=== PATIENT | male | born 1945 | race Caucasian/White ===

== ENCOUNTER → 2016-09-20 | Outpatient (CLI) | payer MEDICARE, OTHER ==
[~2016-09-20] MED LIST: ALEVE 220MG220 MG PO
[2016-09-20 08:20] LABS: CREATININE, serum 0.83 mg/dL (0.66-1.25); POTASSIUM 4.4 mmol/L (3.4-5.0)
[2016-09-20 08:23] LABS: HEMATOCRIT 37.6 % (42.0-52.0); MEAN CELL VOLUME 89 fl (80.0-100.0); MEAN CORPUSCULAR HEMOGLOBIN 28 pg (27.0-31.0); MEAN CORPUSCULAR HGB CONC 32 g/dl (33.0-37.0); MEAN PLATELET VOLUME 9.9 fl (7.4-10.4); PLATELET COUNT 433 K/mm3 (130-400); RED BLOOD COUNT 4.22 M/mm3 (4.20-5.60); REDCELL DISTRIBUTION WIDTH-CV 14.5 % (11.5-14.5); WHITE BLOOD COUNT 10.2 K/mm3 (4.8-10.8)
== END ==
LOC: COL.LAB 07:51
PROVIDERS: Nurse Practitioner
DX: I10 Essential (primary) hypertension (principal); R00.1 Bradycardia, unspecified

== ENCOUNTER → 2016-12-24 | Outpatient (CLI) | payer MEDICARE, OTHER ==
[2016-12-24 10:21] LABS: ADJUSTED CALCIUM 9.2 mg/dL (8.4-10.2); ALBUMIN 3.8 gm/dL (3.5-5.0); BILIRUBIN,TOTAL 0.5 mg/dL (0.0-1.0); CREATININE, serum 0.87 mg/dL (0.66-1.25); POTASSIUM 4.4 mmol/L (3.4-5.0)
== END ==
LOC: COL.LAB 09:00
PROVIDERS: Internal Medicine Interventional Cardiology
DX: I50.42 Chronic combined systolic (congestive) and diastolic (congestive) heart failure (principal)

== ENCOUNTER 2017-03-14 06:18 | Day surgery (SDC) | payer MEDICARE, OTHER ==
[2017-03-14] VITALS (7 sets, daily range): BP systolic 106–148; BP diastolic 51–61; PULSE 35–62; TEMP 97–97.9
[~2017-03-14] VITALS: Ht 182.9 cm; Wt 105.0 kg
[2017-03-14] MEDS ORDERED: ASPIRIN 81M81 MG/TA2 PO (08:59)
[2017-03-14] MEDS ORDERED: ZESTRIL 20MG TA20 MG PO (09:00)
[2017-03-14] MEDS ORDERED: MULTIPLE VITAMI1 TA5 PO (09:00)
[2017-03-14] MEDS ORDERED: TURMERIC500 MG PO (09:01)
[2017-03-14] MEDS ORDERED: NORCO 325 MG-51 TAB PO (17:12)
[2017-03-15 06:19] VITALS: BP 125/47; PULSE 45; TEMP 98.5
[2017-03-15 09:35] VITALS: BP 138/49; PULSE 42; TEMP 97.6
== END 2017-03-15 11:11 | disposition home or self-care (01) ==
LOC: SDCO 06:18 → SURG 18:40 → SDCO 03-15 11:11
DX: C43.4 Malignant melanoma of scalp and neck (principal); Z79.82 Long term (current) use of aspirin; I10 Essential (primary) hypertension; Z80.3 Family history of malignant neoplasm of breast; Z80.0 Family history of malignant neoplasm of digestive organs; Z68.31 Body mass index [BMI] 31.0-31.9, adult
CPT/HCPCS: OP; A9541; J0690; J1100; J2370; J2405; J2704; J3010; J7120

== ENCOUNTER 2019-11-12 14:54 | Emergency (ER) | payer MEDICARE, OTHER ==
[~2019-11-12] VITALS: Ht 182.9 cm; Wt 113.6 kg
[~2019-11-12 14:54] MED LIST changes: +ASPIRIN 81M81 MG/TA2 PO; +MULTIPLE VITAMI1 TA5 PO; +NORCO 325 MG-51 TAB PO; +TURMERIC500 MG PO; +ZESTRIL 20MG TA20 MG PO
[2019-11-12 15:02] VITALS: TEMP 98.8
[2019-11-12] MEDS ORDERED: CEPHALEXIN500 M1 PO (16:39)
[2019-11-12 17:01] VITALS: BP 125/49; PULSE 87
== END 2019-11-12 17:00 | disposition home or self-care (01) ==
LOC: COL.ER 14:54
DX: S01.01XA Laceration without foreign body of scalp, initial encounter (principal); C43.4 Malignant melanoma of scalp and neck; Z79.82 Long term (current) use of aspirin; Y33.XXXA Other specified events, undetermined intent, initial encounter; W22.8XXA Striking against or struck by other objects, initial encounter

== ENCOUNTER 2019-11-30 13:41 | Emergency (ER) | payer MEDICARE, OTHER ==
[~2019-11-30] VITALS: Ht 182.9 cm; Wt 113.6 kg
[~2019-11-30 13:41] MED LIST changes: +CEPHALEXIN500 M1 PO
[2019-11-30 13:47] VITALS: TEMP 97.7
[2019-11-30] MEDS ORDERED: CEPHALEXIN500 M1 PO (14:54)
[2019-11-30 15:06] VITALS: BP 145/78; PULSE 81
== END 2019-11-30 15:06 | disposition home or self-care (01) ==
LOC: COL.ER 13:41
DX: S01.00XA Unspecified open wound of scalp, initial encounter (principal); Z85.820 Personal history of malignant melanoma of skin; Z79.82 Long term (current) use of aspirin; X58.XXXA Exposure to other specified factors, initial encounter

== ENCOUNTER 2021-11-26 14:34 | Inpatient (IN) | payer MEDICARE, OTHER ==
[~2021-11-26] VITALS: Ht 182.9 cm; Wt 107.7 kg
[2021-11-26 15:24] LABS: BASO % 0.3 % (0.0-2.0); EOS # 0.1 K/mm3 (0.0-0.7); EOS % 0.5 % (0.0-4.0); GRAN # 12.9 K/mm3 (1.4-6.5); GRAN % 83.4 % (42.2-75.2); HEMOGLOBIN 12.7 g/dl (13.5-18.0); LYMPH # 1.5 K/mm3 (1.2-3.4); LYMPH % 9.4 % (20.0-51.0); MEAN CELL VOLUME 86 fl (80.0-100.0); MEAN CORPUSCULAR HEMOGLOBIN 28 pg (27-31); MEAN CORPUSCULAR HGB CONC 33 g/dl (33.0-37.0); MEAN PLATELET VOLUME 11.4 fl (7.4-10.4); MONO # 0.9 K/mm3 (0.1-0.6); PLATELET COUNT 202 K/mm3 (130-400); RED BLOOD COUNT 4.53 M/mm3 (4.20-5.60); REDCELL DISTRIBUTION WIDTH-CV 14.6 % (11.5-14.5)
[2021-11-26 15:28] LABS: COLLECTION METHOD CLEAN CATCH
[2021-11-26 15:36] LABS: PH 8.5 (5.0-8.5); URINE APPEARANCE Clear (CLEAR/HAZY); URINE BLOOD TRACE-INTACT (NEGATIVE); URINE COLOR Yellow (YELLOW); URINE GLUCOSE Negative (NEGATIVE); URINE KETONE Negative (NEGATIVE); URINE NITRATE Negative (NEGATIVE); URINE PROTEIN(semi-quant) Negative (NEGATIVE); URINE UROBILINOGEN 0.2 E.U/dL (0.2-1.0)
[2021-11-26 15:39] LABS: ALBUMIN 3.1 gm/dL (3.4-4.8); BILIRUBIN,TOTAL 0.7 mg/dL (0.2-1.2); C-REACTIVE PROTEIN 6.34 mg/dL (0.00-0.50); CALCIUM 8.3 mg/dL (8.4-10.2); CREATININE, serum 1.06 mg/dL (0.72-1.25); POTASSIUM 3.9 mmol/L (3.5-4.5); TOTAL PROTEIN 6.7 gm/dL (6.2-8.1)
[2021-11-26 15:39] LABS: SQUAMOUS EPITHELIAL None Seen /hpf (0-10); URINE BACTERIA None Seen /hpf (NONE SEEN); URINE RBC 0-2 /hpf (0-2)
[2021-11-26 15:59] LABS: TROPONIN-I 0.029 ng/mL (0.00-0.033); TSH w REFLEX 0.727 uIU/mL (0.350-4.940)
[2021-11-26] MEDS ORDERED: ALPHAGAN OPHTH D5 ML OU (18:04)
[2021-11-26] MEDS ORDERED: XALATAN EYE DROPS OP (18:04)
[2021-11-26] MEDS ORDERED: PRINIVIL20 MG PO (18:04)
[2021-11-26 20:00] VITALS: BP 153/65; PULSE 85; TEMP 98.1
[2021-11-26 23:39] VITALS: BP 159/68; PULSE 71; TEMP 99.2
--- NOTE | 2021-11-27 01:00 | NUR ---
PT ARRIVED TO THE MEDICAL FLOOR DURING SHIFT CHANGE TO ROOM 316. PT A&O X 4; VSS FOR PT; O2 RA. PT COMPLAINED OF BACK DISCOMFORT. PT DIDN'T WANT ANYTHING FOR THE DISCOMFORT. PT STATED HE USES A "BACK PAD" FROM THE [employer] FOR HIS BACK. PT ALSO COMPLAINED OF FEELING LIKE HIS LUNGS WERE FILLING UP WITH FLUID FROM(HE FELT) MSG IN HIS TURKEY FROM [facility] AND THE LOVENOX SHOT GIVEN AT SHIFT CHANGE. PT'S LUNGS AND O2 ASSESSED. PT'S LUNG SOUNDS WERE CLEAR AND HIS O2 SATS WERE 100%. PT DENIED CHEST PAIN, PALPITATIONS, N,V,D OR DIZZINESS. PT'S CELLULITIS OUTLINED WITH BLACK MARKER. PT EXPRESSED NO ADDITIONAL NEEDS AT THIS TIME. CALL LIGHT WITHIN REACH.
--- NOTE | 2021-11-27 02:34 | NUR ---
20 guage IV placed to right hand x1 attempt by this nurse. Flushes well with no s/s of infiltration.
[2021-11-27 03:58] VITALS: BP 140/56; PULSE 63; TEMP 98.2
[2021-11-27 06:36] LABS: BASO # 0.1 K/mm3 (0.0-0.2); BASO % 0.4 % (0.0-2.0); EOS # 0.2 K/mm3 (0.0-0.7); EOS % 1.2 % (0.0-4.0); GRAN # 11.1 K/mm3 (1.4-6.5); GRAN % 80.9 % (42.2-75.2); HEMOGLOBIN 11.5 g/dl (13.5-18.0); LYMPH # 1.5 K/mm3 (1.2-3.4); LYMPH % 10.9 % (20.0-51.0); MEAN CORPUSCULAR HEMOGLOBIN 28 pg (27-31); MEAN CORPUSCULAR HGB CONC 31 g/dl (33.0-37.0); MEAN PLATELET VOLUME 12.4 fl (7.4-10.4); MONO # 0.9 K/mm3 (0.1-0.6); MONO % 6.2 % (1.7-9.3); PLATELET COUNT 178 K/mm3 (130-400); RED BLOOD COUNT 4.05 M/mm3 (4.20-5.60); REDCELL DISTRIBUTION WIDTH-CV 14.8 % (11.5-14.5)
[2021-11-27 06:37] LABS: MEAN CELL VOLUME 91 fl (80.0-100.0)
[2021-11-27 06:57] LABS: CALCIUM 8.1 mg/dL (8.4-10.2); CREATININE, serum 0.95 mg/dL (0.72-1.25); POTASSIUM 3.9 mmol/L (3.5-4.5)
[2021-11-27 07:07] LABS: TROPONIN-I 0.029 ng/mL (0.00-0.033)
[2021-11-27 07:28] VITALS: BP 138/62; PULSE 72; TEMP 98.3
--- NOTE | 2021-11-27 10:16 | NUR ---
PT ALERT, ORIENTED, AND TALKATIVE THIS AM. SHIFT ASSESSMENT PERFORMED. FINE CRACKLES NOTED IN LEFT LOWER LOBE, DIMINISHED LUNG SOUDS IN RIGHT LOWER LOBE, UPPER LOBES CLEAR BILATERALLY. DUSKY PURPLISH DISCOLORATION AND +3 PITTING EDDEMA NOTED IN BILATERAL LOWER LEGS AND FEET. WITH BANDAGE ON LEFT FOOT AND ANKLE. NO FURTHER NEEDS EXPRESSED AT THIS TIME, CALL LIGHT WITHIN REACH.
[2021-11-27 11:15] VITALS: BP 142/65; PULSE 70; TEMP 98.3
--- NOTE | 2021-11-27 16:06 | NUR ---
Prep Manager met with patient to discuss discharge planning. Patient lives in [place] with a roommate. Patient does not have a primary care physician and is not interested in having SW set him up with one. [facility]. Patient stated the last PCP he saw said he was riddled with cancer which "pissed him off". Patient obtains medications from [facility]. When asked if he has DME, patient advised he is a hoarder and has multiple walkers. Patient also reported he has massage chairs at home. Patient is independent with ADLS and plans to return home at time of discharge. Patient would like to complete DPOA-HC and designate his son, Nghia. ALIX assisted patient in completing form and ALIX and CHRISTY English provided witness signature. ALIX provided original and copies to patient, then placed copy in chart. Discharge Plan: Home
[2021-11-27 16:14] VITALS: BP 156/69; PULSE 80; TEMP 98.2
[2021-11-27 20:48] VITALS: BP 157/61; PULSE 73; TEMP 100
[2021-11-28 00:02] VITALS: BP 142/59; PULSE 64; TEMP 98.6
[2021-11-28 04:29] VITALS: BP 155/58; PULSE 58; TEMP 98.7
--- NOTE | 2021-11-28 05:00 | NUR ---
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 PT RESTING IN BED WATCHING TV. PT DENIED ALL PAIN, PALPITATIONS, SOB, N,V OR DIZZINESS. PT COMPLAINED OF ONE LARGE BOUT OF DIARRHEA TONIGHT. PT EXPRESSED NO ADDITIONAL NEEDS OR CONCERNS AT THIS TIME. CALL LIGHT WITHIN REACH.
[2021-11-28 07:40] VITALS: BP 150/62; PULSE 62; TEMP 97.6
[2021-11-28] MEDS ORDERED: DOXYCYCLINE HY100 MG PO (08:59)
[2021-11-28] MEDS ORDERED: ELIQUIS 5MG PO (09:00)
--- NOTE | 2021-11-28 09:21 | NUR ---
PT ALERT AND ORIENTED TIMES 4 WITH VITALS WNL. PT DENIES PAIN. PT REPORTS HAVING ONE EPISODE OF DIARRHEA. PT SITTING UP IN BED EATING BREAKFAST. CALL LIGHT WITHIN REACH. NO FURTHER NEEDS IDENTIFIED.
--- NOTE | 2021-11-28 10:18 | NUR ---
PT ALERT AND ORIENTED TIMES 4 WITH VITALS STABLE ON ROOM AIR. PT DENIES PAIN. PT REPORTS HAVING 1 EPISODE OF DIARRHEA. PT SITTING UP IN BED EATING BREAKFAST. CALL LIGHT WITHIN REACH. NO FURTHER NEEDS IDENTIFIED.
[2021-11-28 11:26] VITALS: BP 136/72; PULSE 69; TEMP 97.9
--- NOTE | 2021-11-28 12:15 | NUR ---
Hospital Monitor rounds: Patient is Zoroastrian. Patient told several life stories of miraculous healings that he has been a witness to. Hospital Monitor prayed for Patient. Patient told more stories of miraculous healing.
--- NOTE | 2021-11-28 12:35 | NUR ---
PT GIVEN DISCHARGE INSTRUCTIONS. PT SITTING UP IN BED EATING LUNCH. PT IV DISCONTINUED. NO FURTHER NEEDS IDENTIFIED.
--- NOTE | 2021-11-28 14:45 | NUR ---
PT ALERT AND ORIENTED. PT DISCHARGE INSTRUCTIONS GIVEN. PT INSTRUCTIONS ON PICKING UP PRESCRIPTIONS GIVEN. PT ESCORTED OUT BY VIA [facility] STAFF. NO FURTHER NEEDS IDENTIFIED.
== END 2021-11-28 14:30 | disposition home or self-care (01) | DRG 300 ==
LOC: COL.ER 14:34 → MEDICAL 17:26
PROVIDERS: Emergency Medicine; Physician Assistant; ADMIT Student in an Organized Health Care Education/Training Program
DX: I82.621 Acute embolism and thrombosis of deep veins of right upper extremity (principal); D84.9 Immunodeficiency, unspecified; L03.113 Cellulitis of right upper limb; L97.929 Non-pressure chronic ulcer of unspecified part of left lower leg with unspecified severity; I10 Essential (primary) hypertension; S81.802A Unspecified open wound, left lower leg, initial encounter; Z20.822 Contact with and (suspected) exposure to COVID-19; C43.9 Malignant melanoma of skin, unspecified; Z79.82 Long term (current) use of aspirin; Z23 Encounter for immunization
CPT/HCPCS: J1650; J2543; J3370; J7030; J7050; Q9967